=== PATIENT | male | born 1990 | race Caucasian/White ===

== ENCOUNTER 2021-10-26 10:01 | Inpatient (IN) | payer OTHER ==
[2021-10-26 06:00] VITALS: BMI 25.0
[~2021-10-26 10:01] MED LIST: ACETAMINOPHEN 325 MG TABLET (FP) PO PRN; BISMUTH SUBSALICYLATE 262 MG/15 ML BTL PO PRN; MAG HYDROX/AL HYDROX/SIMETH 30 ML UNIT-DOSE CUP PO PRN; MAGNESIUM CITRATE 300 ML BOTTLE PO PRN; MAGNESIUM HYDROX 2400MG/30ML ORAL SUSPENSION 30 ML CUP PO PRN; MENTHOL/PHENOL 1 EACH UD MM PRN; NICOTINE 10 MG CARTRIDGE (INHALER) IH PRN; ONDANSETRON *ODT* 4 MG TABLET SL PRN; cloNIDine HCL 0.1 MG TABLET PO PRN; methaDONE HCL 10 MG TABLET (FOR DETOX USE ONLY) ONE; methaDONE HCL 10 MG TABLET (FOR DETOX USE ONLY) PO ONE
[2021-10-26] MEDS: NICOTINE 7 MG/24 HOURS TOPICAL PATCH TD SCH (11:11)
[2021-10-26] MEDS: PRENATAL VITAMINS W/ FOLIC ACID TABLET (FP) PO SCH (11:12)
[2021-10-26] MEDS: hydrOXYzine PAMOATE 25 MG CAPSULE (FP) PO SCH ×4 (11:13→22:12)
[2021-10-26 13:29] LABS: HEMATOCRIT 42.6 % (35.4-49); HEMOGLOBIN 14.4 GM/dL (11.7-16.9); MCH 31.4 pg (25.7-33.7); MCHC 33.8 g/dl (32.0-35.9); MEAN CELL VOLUME 92.9 fl (80-96); MEAN PLT VOLUME 7.7 fl (7.5-11.1); PLATELET COUNT 264 10^3/uL (134-434); RBC 4.59 M/mm3 (4.00-5.60); RDW 13.2 % (11.9-15.9); WHITE BLOOD COUNT 8.1 K/mm3 (4.0-10.0)
[2021-10-26 13:38] LABS: ALBUMIN 3.6 g/dl (3.4-5.0); BLOOD UREA NITROGEN 7.9 mg/dL (7-18); CALCIUM 9.3 mg/dL (8.5-10.1)
[2021-10-26 13:41] LABS: CREATININE 0.7 mg/dL (0.55-1.3)
[2021-10-26 13:43] LABS: BILIRUBIN,TOTAL 0.9 mg/dL (0.2-1); TOT PROT 7.3 g/dl (6.4-8.2)
[2021-10-26] MEDS: METHOCARBAMOL 500 MG TABLET PO PRN (22:12)
[2021-10-26] MEDS: MELATONIN 5 MG TABLETS PO SCH (22:12)
[2021-10-26] MEDS: THIAMINE HCL 100 MG TABLET (FP) PO SCH (22:12)
[2021-10-27] MEDS: hydrOXYzine PAMOATE 25 MG CAPSULE (FP) PO SCH ×5 (06:49→22:39)
[2021-10-27] MEDS ORDERED: methaDONE HCL 10 MG TABLET (FOR DETOX USE ONLY) ONE (09:59)
[2021-10-27] MEDS: NICOTINE 7 MG/24 HOURS TOPICAL PATCH TD SCH (10:21)
[2021-10-27] MEDS: PRENATAL VITAMINS W/ FOLIC ACID TABLET (FP) PO SCH (10:21)
[2021-10-27] MEDS: METHOCARBAMOL 500 MG TABLET PO PRN ×2 (10:21→22:40)
[2021-10-27] MEDS: THIAMINE HCL 100 MG TABLET (FP) PO SCH (22:38)
[2021-10-27] MEDS: MELATONIN 5 MG TABLETS PO SCH (22:38)
[2021-10-27] MEDS: ACETAMINOPHEN 325 MG TABLET (FP) PO PRN (22:39)
[2021-10-28] MEDS: hydrOXYzine PAMOATE 25 MG CAPSULE (FP) PO SCH ×5 (06:26→22:15)
[2021-10-28] MEDS: METHOCARBAMOL 500 MG TABLET PO PRN ×2 (06:27→17:59)
[2021-10-28] MEDS: ACETAMINOPHEN 325 MG TABLET (FP) PO PRN ×2 (06:27→18:00)
[2021-10-28] MEDS ORDERED: methaDONE HCL 10 MG TABLET (FOR DETOX USE ONLY) PO ONE (10:00)
[2021-10-28] MEDS: PRENATAL VITAMINS W/ FOLIC ACID TABLET (FP) PO SCH (11:00)
[2021-10-28] MEDS: NICOTINE 7 MG/24 HOURS TOPICAL PATCH TD SCH (11:05)
[2021-10-28] MEDS: THIAMINE HCL 100 MG TABLET (FP) PO SCH (22:15)
[2021-10-28] MEDS: MELATONIN 5 MG TABLETS PO SCH (22:15)
[2021-10-29] MEDS: hydrOXYzine PAMOATE 25 MG CAPSULE (FP) PO SCH ×5 (07:07→22:19)
[2021-10-29] MEDS ORDERED: methaDONE HCL 10 MG TABLET (FOR DETOX USE ONLY) ONE (09:31)
[2021-10-29] MEDS: METHOCARBAMOL 500 MG TABLET PO PRN (10:26)
[2021-10-29] MEDS: PRENATAL VITAMINS W/ FOLIC ACID TABLET (FP) PO SCH (10:27)
[2021-10-29] MEDS: NICOTINE 7 MG/24 HOURS TOPICAL PATCH TD SCH (10:28)
[2021-10-29] MEDS: IBUPROFEN 400 MG TABLET (FP) PO PRN (18:06)
[2021-10-29] MEDS: diazePAM 5 MG TABLET PO PRN (22:19)
[2021-10-29] MEDS: MELATONIN 5 MG TABLETS PO SCH (22:19)
[2021-10-29] MEDS: THIAMINE HCL 100 MG TABLET (FP) PO SCH (22:19)
[2021-10-30] MEDS: hydrOXYzine PAMOATE 25 MG CAPSULE (FP) PO SCH ×5 (05:51→22:17)
[2021-10-30] MEDS ORDERED: methaDONE HCL 10 MG TABLET (FOR DETOX USE ONLY) PO ONE (10:00)
[2021-10-30] MEDS: PRENATAL VITAMINS W/ FOLIC ACID TABLET (FP) PO SCH (10:33)
[2021-10-30] MEDS: METHOCARBAMOL 500 MG TABLET PO PRN ×2 (10:34→17:57)
[2021-10-30] MEDS: NICOTINE 7 MG/24 HOURS TOPICAL PATCH TD SCH (10:35)
[2021-10-30] MEDS: diazePAM 5 MG TABLET PO PRN ×2 (17:58→22:19)
[2021-10-30] MEDS: THIAMINE HCL 100 MG TABLET (FP) PO SCH (22:19)
[2021-10-30] MEDS: MELATONIN 5 MG TABLETS PO SCH (22:19)
[2021-10-30] MEDS: IBUPROFEN 400 MG TABLET (FP) PO PRN (22:21)
[2021-10-31] MEDS: METHOCARBAMOL 500 MG TABLET PO PRN (05:43)
[2021-10-31] MEDS: ACETAMINOPHEN 325 MG TABLET (FP) PO PRN (05:43)
[2021-10-31] MEDS: hydrOXYzine PAMOATE 25 MG CAPSULE (FP) PO SCH (05:48)
[2021-10-31 07:14] VITALS: BP 109/67; PULSE 55; TEMP 98.4
== END 2021-10-31 09:56 | disposition home or self-care (01) | DRG 773 ==
LOC: YASAS 10:01 → Y3N 10:25
PROVIDERS: ADMIT Allergy & Immunology; ATTEND Allergy & Immunology
PROC: HZ2ZZZZ Detoxification Services for Substance Abuse Treatment (ICD-10-PCS; principal; 2021-10-26)
DX: F11.23 Opioid dependence with withdrawal (principal); F17.210 Nicotine dependence, cigarettes, uncomplicated; F41.9 Anxiety disorder, unspecified; R73.9 Hyperglycemia, unspecified; R00.0 Tachycardia, unspecified; R00.1 Bradycardia, unspecified
CPT/HCPCS: 36415; 80053; 82947; 83036; 85027; 86780; C9803; Q0162; U0003; U0005